=== PATIENT | male | born 1955 | race Caucasian/White ===

== ENCOUNTER 2019-10-07 07:40 | Day surgery (SDC) | payer OTHER ==
[2019-10-07] MEDS ORDERED: FENTANYL CITR 100 MCG/2 ML ONE (08:14)
[2019-10-07] MEDS ORDERED: MIDAZOLAM HCL 2 MG/2 ML INJ ONE (08:15)
[2019-10-07] MEDS ORDERED: LIDOCAINE 1% MPF 5 ML VIAL ONE (08:15)
[2019-10-07] MEDS ORDERED: propofoL 200 MG/20 ML VIAL IV ONE (08:15)
[2019-10-07 08:23] LABS: Absolute Lymphocytes (CBC) 1.2 K/uL (0.7-4.9); Basophils % 0.7 % (0-1.3); Hematocrit 44.3 % (39.6-49.0); Lymphocytes % 19.1 % (15.3-44.8); MPV 7.5 fL (7.6-11.3); RBC Red Blood Cell Count 4.77 M/uL (4.33-5.43)
[2019-10-07 08:31] LABS: BUN Blood Urea Nitrogen 13 mg/dL (7-18); Bicarbonate 29 mmol/L (21-32); Glucose Level 132 mg/dL (74-106); Potassium 3.9 mmol/L (3.5-5.1); Sodium Level 140 mmol/L (136-145)
[2019-10-07] MEDS ORDERED: Ringers Lactate 1,000 ML IV ONE ×2 (08:49→11:35)
[2019-10-07] MEDS ORDERED: CEFAZOLIN/SWI 1gm 1 GM/10 ML SYR ONE (09:18)
[2019-10-07] MEDS ORDERED: KETOROLAC 30 MG/ML INJ ONE (09:50)
[2019-10-07] MEDS ORDERED: ONDANSETRON 4 MG/2 ML VIAL ONE ×2 (10:35→11:09)
[2019-10-07] MEDS: MEPERIDINE HCL 25 MG/0.5 ML ONE ×2 (10:38→10:43)
--- NOTE | 2019-10-07 10:50 | P.BOP ---
Preoperative diagnosis: small bowel incarcerated tender right inguinal hernia Postoperative diagnosis: same Primary procedure: Open repair of incarcerated tender right inguinal hernia with mesh [employer] Developer: Jaja Alexandre (Kate) Estimated blood loss: <20cc Specimen: lipoma of cord Findings: viable small bowel Anesthesia: General Complications: None Transferred to: Recovery Room Condition: Good
[2019-10-07] MEDS: HYDROMORPHONE HCL 1 MG/ML INJ ONE ×2 (11:05→11:10)
[2019-10-07 11:47] VITALS: TEMP 98
[2019-10-07] MEDS ORDERED: HYDROCODONE/APAP 5/325 MG TAB ONE (11:51)
--- NOTE | 2019-10-07 12:50 | EKG ---
Test Date: 2019-10-07 Test Time: 08:12:55 Integrated Specialist: RINA MEASUREMENT RESULTS: Intervals: Rate: 72 CA: 150 QRSD: 106 QT: 398 QTc: 435 Hollister: P: 68 CA: 150 QRS: 28 T: 56 INTERPRETIVE STATEMENTS: Normal sinus rhythm Normal ECG Compared to ECG 01/20/2013 10:20:40 No significant changes Electronically Signed On 10-07-19 12:49:36 CDT by Randall Fracnois
[2019-10-07 12:58] VITALS: BP 14/76; O2SAT 100
--- NOTE | 2019-10-07 22:07 | OP ---
Date of Procedure: 10/07/2019 Surgeon: Salomón Panchal MD Manager Metrology: CAMILO Morrow Preoperative Diagnosis: Small bowel incarcerated, tender right inguinal hernia. Postoperative Diagnosis: Small bowel incarcerated, tender right inguinal hernia. Procedure: Open repair of incarcerated, tender right inguinal hernia with mesh. Specimens: Lipoma of the cord. Findings: Viable small bowel. Patient has an incarcerated small bowel on the right inguinal hernia. Anesthesia: General plus local. Implants: Mesh is large mesh plug and sheath. Indications: This is a case of a 64-year-old patient who comes to us with above diagnosis. The niki ent has an incarcerated right inguinal hernia, has to go also for medical clearance. Incarceration o f the small bowel is tender and bothered him for the last few days. He understands there is a ackerman virus national emergency and understands the risks of michael that. At the same time, the risk o f damage to his bowel is larger with more comorbidities and hospital stay. So, he wants this hernia to be fixed. I agree with him. He has been asked not to do heavy lifting, but that has not helped. So, we booked the patient in the OR as an urgent emergent condition. Patient understands the benefi ts and risks of hernia repair, which include but not limited to infection, bleeding, damage to adjace nt structures, anesthesia complications, chronic pain, chronic numbness, [place], and even . He also understands this may not relieve any symptoms. He might need more than one surgical intervention. He understood. He also was explained that we might have to use mesh in that area. Pros and cons of mesh placement discussed with the patient. He was allowed to ask questions and they were answered to his satisfaction. He did consent also for the mesh placement. Description Of Procedure: Patient was brought to the operating room and placed in supine position. Anesthesia was done without complication. Abdominal area was prepped and draped in a sterile fashion . A time-out was called. The right inguinal region was prepped and draped in a sterile fashion. Af ter that, an incision was made in the right inguinal region. Bowel was incarcerated, so keeping that with the laparoscopic since it cannot be reduced, it will be more dangerous, so we procee ded with an open technique. An incision was made in the right inguinal region. Keyonna fascia was op ened. Incision was carried all the way to the external oblique aponeurosis, which was opened in dire ction of its fibers. Ilioinguinal nerve and iliohypogastric nerve were identified and protected behi nd the external oblique aponeurosis. Mcintosh was placed around the spermatic cord. We noticed the p atient to have direct hernia. The hernia sac was opened and noticed to have a viable bowel that was carefully reduced into the abdominal cavity with the help of Trendelenburg. The hernia sac was then closed and imbricated since a direct defect lies better that way. The mesh plug was placed in that a bret, secured in place with VersaTack. Also, the spermatic cord structures were identified. No herni as in that region. The vas deferens and the rest of the structures were protected at all times. At that moment, I proceeded then to close the floor of the canal. We have to imbricate that area by put ting #1 Prolene to the pubic tubercle, shelving edge of the inguinal ligament, transversalis fascia. Then, we placed a mesh sheath on top of that when securing that in place on the pubic tubercle, irene ving edge of the inguinal canal, transversalis fascia, and the tail looped around the spermatic cord, making sure there was no strangulation. The area was irrigated. No bleeding. At that moment, I pr oceeded then to place the ilioinguinal nerve and iliohypogastric nerve back into the inguinal canal. The superficial inguinal ring was closed making sure the nerves were not included. Once we closed t he external oblique aponeurosis, we proceeded to close the Keyonna fascia after injecting local anesth etic. Closed the skin with bessie. Sponge count and instrument counts were correct at end of the c ase. Testicles were in the scrotum. Patient tolerated the procedure well. Patient was sent to [facility] in stable condition. Disposition: Home. Activity: As tolerated. No heavy lifting. Discharge Instructions: Follow up in my in 1 week. Call for appointment at [phone]. Keep area dry for 48 hours, then may shower with dressings off. Cold compress of the right inguinal region for 24 hours. Medications: Bactrim DS p.o. b.i.d. and Vicodin q.4 hours p.r.n. pain. HM/MODL Voice ID: [id number] Report ID: [id number]
== END 2019-10-07 13:30 | disposition home or self-care (01) ==
LOC: OR 07:40
PROVIDERS: ATTEND Surgery
PROC: 0YU50JZ Supplement Right Inguinal Region with Synthetic Substitute, Open Approach (ICD-10-PCS; principal; 2019-10-07 09:00)
DX: K40.30 Unilateral inguinal hernia, with obstruction, without gangrene, not specified as recurrent (principal); K21.9 Gastro-esophageal reflux disease without esophagitis; Z87.891 Personal history of nicotine dependence; Z88.8 Allergy status to other drugs, medicaments and biological substances; Z80.8 Family history of malignant neoplasm of other organs or systems; Z82.49 Family history of ischemic heart disease and other diseases of the circulatory system
CPT/HCPCS: 49507; 93005; 85025; 80048; 36415; 88302; J2704; J2250; J3010; J2175; J1170; J0690; J7120 ×2; J2405 ×2